=== PATIENT | female | born 1955 | race Caucasian/White ===

== ENCOUNTER 2017-10-10 10:57 | Inpatient (IN) | payer MEDICARE ==
[~2017-10-10] VITALS: Ht 162.6 cm; Wt 145.0 kg
[2017-10-10 11:02] VITALS: BP 132/86; PULSE 54; RESP 16; TEMP 98.3; O2SAT 99
--- NOTE | 2017-10-10 13:14 | PD ---
HPI Chief Complaint: Altered Mental Status Time Seen by Provider: 12:56 Travel History International Travel<30 days: No Contact w/Intl Traveler<30days: No Traveled to known affect area: No History of Present Illness HPI 62-year-old female presents to the emergency department for evaluation of episode of altered mental status that occurred around 10 AM this morning. Patient is a poor historian. She reports some sort of brain surgery that happened in June while she was in [place]. She then moved here in July. She states that she had the brain surgery after an episode of slurred speech and confusion. She does not know what kind of surgery it was. She states she has been doing fine until this morning when she had stuttering, shakiness of the extremities as well as confusion. She states this lasted for approximately 30 minutes and is now at her baseline. Patient denies any pain. No headache. No fevers or chills. No chest pain or shortness of breath. No abdominal pain. Nausea, vomiting, diarrhea. She does have some erythema and warmth of the left lower extremity which she states is chronic for her. She is unsure of her chronic medical problems or what medications that she is on. Moderate severity. No exacerbating or alleviating factors. PFSH Social History Alcohol Use: No Tobacco Use: No Substance Use: No Allergies-Medications (Allergen,Severity, Reaction): Coded Allergies: lidocaine (Verified Allergy, Unknown, 10/10/17) Review of Systems Except as stated in HPI: all other systems reviewed are Neg Physical Exam Narrative GENERAL: Well-nourished, well-developed obese female patient, afebrile SKIN: Focused skin assessment warm/dry. Patient has erythema and warmth noted to left lower extremity. HEAD: Normocephalic. Atraumatic. EYES: No scleral icterus. No injection or drainage. NECK: Supple, trachea midline. No JVD or lymphadenopathy. CARDIOVASCULAR: Regular rate and rhythm without murmurs, gallops, or rubs. Bilateral radial and pedal pulses 2+. RESPIRATORY: Breath sounds equal bilaterally. No accessory muscle use. Lungs sounds are clear to auscultation. GASTROINTESTINAL: Abdomen soft, non-tender, nondistended. MUSCULOSKELETAL: No cyanosis, or edema. Patient have bilateral 2+ lower extremity edema. BACK: Nontender without obvious deformity. No CVA tenderness. NEUROLOGICAL: Awake and alert. Cranial nerves II through XII intact. Motor and sensory grossly within normal limits. Five out of 5 muscle strength in all muscle groups. Normal speech. Data Data Last Documented VS Vital Signs Date Time Temp Pulse Resp B/P (MAP) Pulse Ox O2 Delivery O2 Flow Rate FiO2 10/10/17 13:40 Room Air 10/10/17 13:40 97 10/10/17 11:02 98.3 54 16 132/86 (101) Orders Orders Blood Glucose (10/10/17 12:39) Oximetry (10/10/17 12:39) Iv Access Insert/Monitor (10/10/17 12:39) Ecg Monitoring (10/10/17 12:39) Oxygen Administration (10/10/17 12:39) Complete Blood Count With Diff (10/10/17 12:39) Basic Metabolic Panel (Bmp) (10/10/17 12:39) Electrocardiogram (10/10/17 13:09) Prothrombin Time / Inr (Pt) (10/10/17 13:09) Act Partial Throm Time (Ptt) (10/10/17 13:09) Urinalysis - C+S If Indicated (10/10/17 13:09) Ct Brain W/O Iv Contrast(Rout) (10/10/17 13:09) Dexamethasone Inj (Decadron Inj) (10/10/17 14:30) Mri Brain W&W/O Contrast (10/10/17 ) Urine Culture (10/10/17 14:00) Ceftriaxone Inj (Rocephin Inj) (10/10/17 14:45) Consult Neurosurgery (10/10/17 ) Admit To Inpatient (10/10/17 ) Inpatient Certification (10/10/17 ) Activity Bed Rest (10/10/17 14:47) Vital Signs (Adult) DAVID.Q4H (10/10/17 14:47) Neuro Checks . ORDERED (10/10/17 14:47) Speech Therapy Consult-Eval/Tx (10/10/17 14:49) (Hub Use Only)Inp Phy Cons/Ref (10/10/17 ) Admit Order (Ed Use Only) (10/10/17 15:38) Labs Laboratory Tests Test 10/10/17 13:15 10/10/17 14:00 10/10/17 14:52 Blood Urea Nitrogen 30 MG/DL Creatinine 1.00 MG/DL Random Glucose 102 MG/DL Calcium Level 8.6 MG/DL Sodium Level 140 MEQ/L Potassium Level 3.1 MEQ/L Chloride Level 106 MEQ/L Carbon Dioxide Level 25.5 MEQ/L Anion Gap 9 MEQ/L Estimat Glomerular Filtration Rate 56 ML/MIN Urine Color YELLOW Urine Turbidity CLOUDY Urine pH 6.0 Urine Specific [place] 1.023 Urine Protein 100 mg/dL Urine Glucose (UA) NEG mg/dL Urine Ketones NEG mg/dL Urine Occult Blood MOD Urine Nitrite POS Urine Bilirubin NEG Urine Urobilinogen 2.0 MG/DL Urine Leukocyte Esterase LARGE Urine RBC 14 /hpf Urine WBC /hpf Urine WBC Clumps MOD Urine Squamous Epithelial Cells 74 /hpf Urine Bacteria MANY /hpf Urine Hyaline Casts 12 /lpf Urine Mucus MOD /lpf Microscopic Urinalysis Comment CATH-CULTURE IND White Blood Count 10.2 TH/MM3 Red Blood Count 3.93 MIL/MM3 Hemoglobin 13.0 GM/DL Hematocrit 38.6 % Mean Corpuscular Volume 98.2 FL Mean Corpuscular Hemoglobin 33.2 PG Mean Corpuscular Hemoglobin Concent 33.8 % Red Cell Distribution Width 14.8 % Platelet Count 110 TH/MM3 Mean Platelet Volume 9.1 FL Neutrophils (%) (Auto) 71.3 % Lymphocytes (%) (Auto) 19.4 % Monocytes (%) (Auto) 8.5 % Eosinophils (%) (Auto) 0.5 % Basophils (%) (Auto) 0.3 % Neutrophils # (Auto) 7.2 TH/MM3 Lymphocytes # (Auto) 2.0 TH/MM3 Monocytes # (Auto) 0.9 TH/MM3 Eosinophils # (Auto) 0.1 TH/MM3 Basophils # (Auto) 0.0 TH/MM3 CBC Comment DIFF FINAL Differential Comment Prothrombin Time 10.1 SEC Prothromb Time International Ratio 1.0 RATIO Activated Partial Thromboplast Time 21.[address] [facility] Medical Decision Making Medical Screen Exam Complete: Yes Emergency Medical Condition: Yes Medical Record Reviewed: Yes Differential Diagnosis TIA versus CVA versus intracranial hemorrhage versus electrolyte abnormality versus UTI versus cellulitis Narrative Course 62-year-old female presents to the emergency department for evaluation of episode of stuttering speech, confusion, feeling shaky that started at around 10 AM this morning resolved after 30 minutes. She is now at her baseline. She does report history of brain surgery, but does not know what was done or what for. EKG, CBC, BMP, PTT, PT/INR, UA, CT of the brain are ordered and pending. Patient is initially seen in the ambulance hallway. She will be moved to medical bed when one becomes available. Vicki Lamb Oct 10, 2017 13:14
--- NOTE | 2017-10-10 14:05 | RADRPT ---
EXAM DATE/TIME: 10/10/2017 13:24 [place] COMPARISON: No previous studies available for comparison. INDICATIONS : Trouble with speech,cofusions RADIATION DOSE: 56.35 CTDIvol (mGy) MEDICAL HISTORY : Cerebrovascular disease. SURGICAL HISTORY : Craniotomy. ENCOUNTER: Initial ACUITY: 1 day PAIN SCALE: 0/10 LOCATION: cranial TECHNIQUE: Multiple contiguous axial images were obtained of the head. Using automated exposure control and adj ustment of the mA and/or kV according to patient size, radiation dose was kept as low as reasonably a chievable to obtain optimal diagnostic quality images. DICOM format image data is available electro nically for review and comparison. FINDINGS: There is a large heterogeneous low-density process in the left frontal region with moderate vasogenic edema and mass effect. There is some compression and slight displacement of the ipsilateral frontal horn and regional effacement of cortical sulci. The contralateral right hemisphere is benign and unremarkable. Patchy baseline periventricular white matter hypodensity which is likely microvascular ischemia. The posterior fossa and brainstem structur es are grossly unremarkable. There is no evidence of macroscopic hemorrhage. The patient has undergone previous left frontal craniotomy. Extracranial structures are otherwise wilfredo ssly intact and benign. CONCLUSION: Heterogeneous low-density process in the left frontal brain with moderate mass effect. Neoplastic and infectious processes would be the primary considerations with the latter felt less likely. Correlati on recommended. Further evaluation with contrasted MRI is suggested as clinically appropriate Alexander Jaquez MD on October 10, 2017 at 13:58 Board Certified Radiologist. This report was verified electronically.
[2017-10-10 14:07] LABS: BICARBONATE 25.5 MEQ/L (21.0-32.0); CALCIUM 8.6 MG/DL (8.5-10.1)
--- NOTE | 2017-10-10 14:23 | PD ---
Physical Exam Narrative GENERAL: Well-nourished, well-developed patient. SKIN: Warm and dry. HEAD: Normocephalic and atraumatic. EYES: No injection or drainage. ENT: No nasal drainage noted. NECK: Supple, trachea midline. CARDIOVASCULAR: Regular rate and rhythm RESPIRATORY: no increased effort. No accessory muscle use. NEUROLOGICAL: Awake and alert. Motor and sensory grossly within normal limits. Normal speech. Data Data Last Documented VS Vital Signs Date Time Temp Pulse Resp B/P (MAP) Pulse Ox O2 Delivery O2 Flow Rate FiO2 10/10/17 11:02 98.3 54 16 132/86 (101) 99 Orders Orders Blood Glucose (10/10/17 12:39) Oximetry (10/10/17 12:39) Iv Access Insert/Monitor (10/10/17 12:39) Ecg Monitoring (10/10/17 12:39) Oxygen Administration (10/10/17 12:39) Complete Blood Count With Diff (10/10/17 12:39) Basic Metabolic Panel (Bmp) (10/10/17 12:39) Electrocardiogram (10/10/17 13:09) Prothrombin Time / Inr (Pt) (10/10/17 13:09) Act Partial Throm Time (Ptt) (10/10/17 13:09) Urinalysis - C+S If Indicated (10/10/17 13:09) Ct Brain W/O Iv Contrast(Rout) (10/10/17 13:09) Dexamethasone Inj (Decadron Inj) (10/10/17 14:30) Mri Brain W&W/O Contrast (10/10/17 ) Urine Culture (10/10/17 14:00) Ceftriaxone Inj (Rocephin Inj) (10/10/17 14:45) Consult Neurosurgery (10/10/17 ) Admit To Inpatient (10/10/17 ) Inpatient Certification (10/10/17 ) Diet Npo (10/10/17 Dinner) Activity Bed Rest (10/10/17 14:47) Vital Signs (Adult) DAVID.Q4H (10/10/17 14:47) Neuro Checks . ORDERED (10/10/17 14:47) Speech Therapy Consult-Eval/Tx (10/10/17 14:49) (Hub Use Only)Inp Phy Cons/Ref (10/10/17 ) Admit Order (Ed Use Only) (10/10/17 15:38) Labs Laboratory Tests Test 10/10/17 13:15 10/10/17 14:00 10/10/17 14:52 Blood Urea Nitrogen 30 MG/DL Creatinine 1.00 MG/DL Random Glucose 102 MG/DL Calcium Level 8.6 MG/DL Sodium Level 140 MEQ/L Potassium Level 3.1 MEQ/L Chloride Level 106 MEQ/L Carbon Dioxide Level 25.5 MEQ/L Anion Gap 9 MEQ/L Estimat Glomerular Filtration Rate 56 ML/MIN Urine Color YELLOW Urine Turbidity CLOUDY Urine pH 6.0 Urine Specific [place] 1.023 Urine Protein 100 mg/dL Urine Glucose (UA) NEG mg/dL Urine Ketones NEG mg/dL Urine Occult Blood MOD Urine Nitrite POS Urine Bilirubin NEG Urine Urobilinogen 2.0 MG/DL Urine Leukocyte Esterase LARGE Urine RBC 14 /hpf Urine WBC /hpf Urine WBC Clumps MOD Urine Squamous Epithelial Cells 74 /hpf Urine Bacteria MANY /hpf Urine Hyaline Casts 12 /lpf Urine Mucus MOD /lpf Microscopic Urinalysis Comment CATH-CULTURE IND White Blood Count 10.2 TH/MM3 Red Blood Count 3.93 MIL/MM3 Hemoglobin 13.0 GM/DL Hematocrit 38.6 % Mean Corpuscular Volume 98.2 FL Mean Corpuscular Hemoglobin 33.2 PG Mean Corpuscular Hemoglobin Concent 33.8 % Red Cell Distribution Width 14.8 % Platelet Count 110 TH/MM3 Mean Platelet Volume 9.1 FL Neutrophils (%) (Auto) 71.3 % Lymphocytes (%) (Auto) 19.4 % Monocytes (%) (Auto) 8.5 % Eosinophils (%) (Auto) 0.5 % Basophils (%) (Auto) 0.3 % Neutrophils # (Auto) 7.2 TH/MM3 Lymphocytes # (Auto) 2.0 TH/MM3 Monocytes # (Auto) 0.9 TH/MM3 Eosinophils # (Auto) 0.1 TH/MM3 Basophils # (Auto) 0.0 TH/MM3 CBC Comment DIFF FINAL Differential Comment Prothrombin Time 10.1 SEC Prothromb Time International Ratio 1.0 RATIO Activated Partial Thromboplast Time 21.0 SEC [facility] Supervised Visit with RAINA: No Interpretation(s) Last [address] 10/10/17 [id number] Signed Impressions: Service Date/Time: Tuesday, October 10, 2017 13:24 - CONCLUSION: Heterogeneous low-density process in the left frontal brain with moderate mass effect. Neoplastic and infectious processes would be the primary considerations with the latter felt less likely. Correlation recommended. Further evaluation with contrasted MRI is suggested as clinically appropriate Alexander Jaquez MD CBC & BMP Diagram 10/10/17 13:15 Calcium Level 8.6 Narrative Course Patient initially seen and ambulance hallway. Resume care with workup pending. CT shows low-density process left frontal brain with moderate mass effect. 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 She did not get chemotherapy or radiation afterwards. She is currently on low-dose steroids. She had an MRI at [facility] on September [address] Muller her primary doctor about a possible second spot but did not get official results yet. Today she had an episode early this morning where she just started muttering in terms of speech. Now she is back to baseline other than the family thinks she's a little more agreeable than usual and they're noticing minor changes. Patient will need to be admitted to the hospital for further care. Urinalysis shows signs of infection. Given Rocephin Physician Communication Physician Communication dr ortega agrees to decadron and can admit to medicine dr white agrees to admit Diagnosis Primary Impression: Altered mental status Qualified Codes: R41.82 - Altered mental status, unspecified Additional Impressions: Left frontal lobe lesion UTI (urinary tract infection) Qualified Codes: N39.0 - Urinary tract infection, site not specified Hypokalemia Admitting Information Admitting Physician Requests: Admit Kizzy Gregorio MD Oct 10, 2017 14:23
[2017-10-10 14:25] LABS: BACTERIA, URINE MANY /hpf; BILIRUBIN, URINE NEG (NEG); BLOOD, URINE MOD (NEG); GLUCOSE,URINE NEG (NEG); HYALINE CAST, URINE 12 /lpf (RARE); KETONE, URINE NEG (NEG); MUCUS URINE MOD /lpf (OCC); NITRITE,URINE POS (NEG); SQUAMOUS EPITHELIAL CELL URINE 74 /hpf (0-5); URINE COLOR YELLOW (YELLW/STRAW); URINE LEUKOCYTE ESTERASE LARGE (NEG); WHITE BLOOD CELL CLUMPS MOD
[2017-10-10] MEDS ORDERED: DEXAMETHASONE SOD PHOS 4 MG/ML VIAL IV PUSH ONE (14:30)
[2017-10-10] MEDS ORDERED: cefTRIAXone INJ 1,000 MG in SODIUM CHLORIDE 0.9% INJ 100 ML IV ONE (14:45)
[2017-10-10 15:21] LABS: AUTOMATED NEUTROPHIL # 7.2 TH/MM3 (1.8-7.7); BASOPHIL % 0.3 % (0.0-2.0); EOSINOPHIL # 0.1 TH/MM3 (0-0.4); EOSINOPHIL % 0.5 % (0.0-4.0); HEMATOCRIT 38.6 % (35.0-46.0); LYMPH % 19.4 % (9.0-44.0); MEAN CELL VOLUME 98.2 FL (80.0-100.0); MEAN CORPUSCULAR HEMOGLOBIN 33.2 PG (27.0-34.0); MEAN CORPUSCULAR HGB CONC 33.8 % (32.0-36.0); MEAN PLATELET VOLUME 9.1 FL (7.0-11.0); MONO % 8.5 % (0.0-8.0); MONOCYTE # 0.9 TH/MM3 (0-0.9); NEUT % 71.3 % (16.0-70.0); PLATELET COUNT 110 TH/MM3 (150-450); RED BLOOD COUNT 3.93 MIL/MM3 (4.00-5.30); RED CELL DISTRIBUTION WIDTH 14.8 % (11.6-17.2); WHITE BLOOD COUNT 10.2 TH/MM3 (4.0-11.0)
[2017-10-10 15:38] LABS: PROTHROMBIN TIME - PATIENT 10.1 SEC (9.8-11.6)
[2017-10-10] MEDS ORDERED: POTASSIUM BICARBONATE 25 MEQ EFFERVESCENT TAB PO ONE (18:00)
[2017-10-10] MEDS ORDERED: FAMOTIDINE 20 MG/2 ML VIAL IV PUSH SCH (18:00)
[2017-10-10 18:18] VITALS: BP 124/70
--- NOTE | 2017-10-10 18:52 | HHI.HP ---
HPI Service [facility] Primary Care Physician Unknown Admission Diagnosis altered mental status, frontal lesion, uti Diagnoses: Chief Complaint: Change in mental status Travel History International Travel<30 Days: No Contact w/Intl Traveler <30 Da: No Traveled to Known Affected Are: No History of Present Illness Patient is a 62-year-old female right handed with history of hypertension, history of atrial fibrillation, hypothyroidism, history of thrombocytopenia, history of impulse control issues, history of chronic pain with this a.m. while at the kitchen table was noted by her to be confused. She was noted to be staring blankly into the space and babbling/stuttering. This lasted for half a minute. also reported slight drooping in the mouth and right side I am mild weakness. Patient was confused but her family's states she was still able to go to the bathroom but with directions. There was no syncopal episode. This lasted for a few seconds but required 3 separate times. She had difficulty expressing words out and felt frustrated. EMS was called and was promptly brought in here for further evaluation. Patient herself is amnestic of event. Denies any fever or chest pain shortness of breath nausea vomiting or headaches. Patient was diagnosed with gliosarcoma in 06/14/17 She was set up to see an oncologist this coming Monday for plan for treatment.-family thinks with Dr. Vazquez but not sure Patient baseline uses a front-wheeled walker/Rollator for ambulation for safety. Since 2012 Review of Systems Constitutional: DENIES: Fever, Weight loss, Chills, Change in appetite Eyes: DENIES: Blurred vision, Double Vision Ears, nose, mouth, throat: DENIES: Tinnitus, Ear Pain, Epistaxis, Odynophagia Respiratory: DENIES: Cough, Hemoptysis, Sputum production, Shortness of breath Cardiovascular: DENIES: Chest pain, Palpitations, Dyspnea on Exertion, Lower Extremity Edema, Orthopnea Gastrointestinal: DENIES: Black stools, Bloody stools, Difficulty Swallowing, Anorexia Genitourinary: DENIES: Urgency, Hematuria, Vaginal discharge Musculoskeletal: DENIES: Joint pain, Stiffness Integumentary: DENIES: Pruritus Hematologic/lymphatic: DENIES: Bruising Immunologic/allergic: DENIES: Urticaria Neurologic: DENIES: Headache, Speech Problems, Tremor Psychiatric: DENIES: Suicidal Ideation, Homicidal Ideation Past Family Social History Past Medical History Hypothyroidism Depression Impulse control disorder Glial sarcoma Chronic pain Atrial fibrillation Hypertension Past Surgical History 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/14/17 at [facility] Cholecystectomy 2017 Right knee surgery for torn meniscus History of IND left lower extremity cysts with sounds like complicating osteomyelitis in 2011 Dental surgery Reported Medications Gabapentin 400 mg bedtime oxycodone 5/325 bedtime Metoprolol 50 mg twice daily daily Amiodarone 200 mg daily Lisinopril 20 mg daily Synthroid 300 g daily Sertraline 200 mg daily Trazodone 100 mg at bedtime when necessary for sleep Lorazepam soft 0.5 mg twice a day when necessary Omeprazole 40 mg daily Allergies: Coded Allergies: lidocaine (Verified Allergy, Unknown, 10/10/17) Physical Exam Vital Signs Vital Signs Date Time Temp Pulse Resp B/P (MAP) Pulse Ox O2 Delivery O2 Flow Rate FiO2 10/10/17 18:18 49 15 124/70 (88) 97 10/10/17 13:40 Room Air 10/10/17 13:40 97 Room Air 10/10/17 11:02 98.3 54 16 132/86 (101) 99 Physical Exam GENERAL: Awake alert oriented 3 speech clear and coherent in no apparent distress. Obese HEAD: Atraumatic. Normocephalic. No temporal or scalp tenderness. EYES: Pupils equal round and reactive. Extraocular motions intact. No scleral icterus. No injection or drainage. ENT: Nose without bleeding, purulent drainage or septal hematoma. Throat without erythema, tonsillar hypertrophy or exudate. Uvula midline. Airway patent. NECK: Trachea midline. No JVD or lymphadenopathy. Supple, nontender, no meningeal signs. CARDIOVASCULAR: Regular rate and rhythm without murmurs, gallops, or rubs. Heart rate 62/m RESPIRATORY: Clear to auscultation. Breath sounds equal bilaterally. No wheezes , rales, or rhonchi. GASTROINTESTINAL: Abdomen soft, non-tender, nondistended. No hepato-splenomegaly , or palpable masses. No guarding. MUSCULOSKELETAL: Erythema of both lower extremity per patient chronic, some varicosities NEUROLOGICAL: Awake and alert. Cranial nerves II through XII intact. Motor and sensory grossly within normal limits. Five out of 5 muscle strength in all muscle groups. Normal speech. Laboratory Laboratory Tests Test 10/10/17 13:15 10/10/17 14:00 10/10/17 14:52 Blood Urea Nitrogen 30 Creatinine 1.00 Random Glucose 102 Calcium Level 8.6 Sodium Level 140 Potassium Level 3.1 Chloride Level 106 Carbon Dioxide Level 25.5 Anion Gap 9 Estimat Glomerular Filtration Rate 56 Urine Color YELLOW Urine Turbidity CLOUDY Urine pH 6.0 Urine Specific [place] 1.023 Urine Protein 100 Urine Glucose (UA) NEG Urine Ketones NEG Urine Occult Blood MOD Urine Nitrite POS Urine Bilirubin NEG Urine Urobilinogen 2.0 Urine Leukocyte Esterase LARGE Urine RBC 14 Urine WBC Urine WBC Clumps MOD Urine Squamous Epithelial Cells 74 Urine Bacteria MANY Urine Hyaline Casts 12 Urine Mucus MOD Microscopic Urinalysis Comment CATH-CULTURE IND White Blood Count 10.2 Red Blood Count 3.93 Hemoglobin 13.0 Hematocrit 38.6 Mean Corpuscular Volume 98.2 Mean Corpuscular Hemoglobin 33.2 Mean Corpuscular Hemoglobin Concent 33.8 Red Cell Distribution Width 14.8 Platelet Count 110 Mean Platelet Volume 9.1 Neutrophils (%) (Auto) 71.3 Lymphocytes (%) (Auto) 19.4 Monocytes (%) (Auto) 8.5 Eosinophils (%) (Auto) 0.5 Basophils (%) (Auto) 0.3 Neutrophils # (Auto) 7.2 Lymphocytes # (Auto) 2.0 Monocytes # (Auto) 0.9 Eosinophils # (Auto) 0.1 Basophils # (Auto) 0.0 CBC Comment DIFF FINAL Differential Comment Prothrombin Time 10.1 Prothromb Time International Ratio 1.0 Activated Partial Thromboplast Time 21.0 Date/Time Source Procedure Growth Status 10/10/17 14:00 Urine Catheterized Urine Urine Culture Pending Received Result Diagram: 10/10/17 1452 10/10/17 1315 Imaging Last Impressions Head CT 10/10/17 1309 Signed Impressions: Service Date/Time: Tuesday, October 10, 2017 13:24 - CONCLUSION: Heterogeneous low-density process in the left frontal brain with moderate mass effect. Neoplastic and infectious processes would be the primary considerations with the latter felt less likely. Correlation recommended. Further evaluation with contrasted MRI is suggested as clinically appropriate Alexander MD Grisel Godoy VTE Risk Assessment [place] VTE Risk Assessment: Mod/High Risk (score >= 2) VTE Pharm Contraindication: Intracranial lesions Caprini Risk Assessment Model Point Value = 1 Point Value = 2 Point Value = 3 Point Value = 5 Age 41-60 Minor surgery BMI > 25 kg/m2 Swollen legs Varicose veins or History of unexplained or recurrent spontaneous Oral contraceptives or hormone replacement Sepsis (< 1 month) Serious lung disease, including pneumonia (< 1 month) Abnormal pulmonary function Acute myocardial infarction Congestive heart failure (< 1 month) History of inflammatory bowel disease Medical patient at bed rest Age 61-74 Arthroscopic surgery Major open surgery (> 45 min) Laparoscopic surgery (> 45 min) Malignancy Confined to bed (> 72 hours) Immobilizing plaster cast Central venous access Age >= 75 History of VTE Family history of VTE Factor V Leiden Prothrombin [id number] Lupus anticoagulant Anticardiolipin antibodies Elevated serum homocysteine Heparin-induced thrombocytopenia Other congenital or acquired thrombophilia Stroke (< 1 month) Elective arthroplasty Hip, pelvis, or leg fracture Acute spinal cord injury (< 1 month) Prophylaxis Regimen Total Risk Factor Score Risk Level Prophylaxis Regimen 0-1 Low Early ambulation 2 Moderate Order ONE of the following: *Sequential Compression Device (SCD) *Heparin 5000 units SQ BID 3-4 Higher Order ONE of the following medications: *Heparin 5000 units SQ TID *Enoxaparin/Lovenox 40 mg SQ daily (WT < 150 kg, CrCl > 30 mL/min) *Enoxaparin/Lovenox 30 mg SQ daily (WT < 150 kg, CrCl > 10-29 mL/min) *Enoxaparin/Lovenox 30 mg SQ BID (WT < 150 kg, CrCl > 30 mL/min) AND/OR *Sequential Compression Device (SCD) 5 or more Highest Order ONE of the following medications: *Heparin 5000 units SQ TID (Preferred with Epidurals) *Enoxaparin/Lovenox 40 mg SQ daily (WT < 150 kg, CrCl > 30 mL/min) *Enoxaparin/Lovenox 30 mg SQ daily (WT < 150 kg, CrCl > 10-29 mL/min) *Enoxaparin/Lovenox 30 mg SQ BID (WT < 150 kg, CrCl > 30 mL/min) AND *Sequential Compression Device (SCD) Assessment and Plan Assessment and Plan 62-year-old female right-handed presenting with History of Gliosarcoma S/P surgery december 2016 Change in mental status transient/confusion resolved.with some expressive aphasia Rule out TIA versus seizure episode Cerebral edema surrounding the mass lesion Neurochecks every shift Check an EEG. MRI of the brain ordered Start patient on dexamethasone 4 mg every 6.- Patient was on 2 mg twice a day of Dexamethasone as outpatient Start patient on Keppra 500 mg IV every 12 Neurosurgery consulted speech therapy consult History of hypertension History atrial fibrillation currently in sinus rhythm heart rate in the high 50s to low 60s. Continue on lisinopril 20 mg daily Continue on metoprolol 50 mg twice a day with hold parameters Continue on amiodarone 200 mg daily On further discussion with the patient was not placed on any blood thinners/ antiplatelets due to [employer] lesion and history of thormbocytopenia Patient was set up to see an oncologist for evaluation Consult oncologist History of thrombocytopenia. Per family. Her platelet runs low at one point was in the 50s. Aspirin and Coumadin for anticoagulation was not initiated due to this Platelet count now 110. ff CBC Follow CBC history of hypothyroidism. Continue Synthroid 300 g daily History of depression/impulse control disorder Continue sertraline 200 mg daily. Continue trazodone 100 mg at bedtime History of chronic pain continue on oxycodone 5/325 2 at bedtime when necessary Chronic lower extremity erythema/varicosities on exam. No fever no white count elevation Monitor. Hypokalemia. Given 50 mEq of potassium bicarbonate 1 now Mild acute kidney insufficiency prerenal. Gentle IV fluids with potassium incorporation Complete metabolic panel in a.m. Urinary tract infection- ff c and S started on Ceftriaxone PPI for GI prophylaxis - while on IV steroids Early ambulation TEDs/SCD Discussed Condition With Patient and family. Physician Certification 2 Midnight Certification Type: Admission for Inpatient Services Order for Inpatient Services The services are ordered in accordance with Medicare regulations or non- Medicare payer requirements, as applicable. In the case of services not specified as inpatient-only, they are appropriately provided as inpatient services in accordance with the 2-midnight benchmark. Estimated LOS (days): 3 days is the estimated time the patient will need to remain in the hospital, assuming treatment plan goals are met and no additional complications. Post-Hospital Plan: Not yet determined Sesar Britton MD Oct 10, 2017 18:52
[2017-10-10] MEDS: D5-NS + KCL 20 MEQ INJ 1,000 ML IV SCH ×2 (19:47→23:42)
[2017-10-10] MEDS: ACETAMINOPHEN/HYDROcodone 325 MG/5 MG TAB PO PRN (19:48)
[2017-10-10 20:00] VITALS: BP 132/69; PULSE 48; RESP 18; TEMP 98.1; O2SAT 94
[2017-10-10] MEDS: DEXAMETHASONE SOD PHOS 4 MG/ML VIAL IV PUSH SCH ×2 (20:30→22:45)
[2017-10-10] MEDS ORDERED: GADODIAMIDE PF 287 MG/ML 5 ML VIAL (for RAD MRI) IV PUSH ONE (21:02)
--- NOTE | 2017-10-10 21:11 | RADRPT ---
EXAM DATE/TIME: 10/10/2017 20:26 [facility] COMPARISON: CT BRAIN W/O CONTRAST, October 10, 2017, 13:24. INDICATIONS : Tumor. CONTRAST: 25 cc Omniscan (gadodiamide) IV MEDICAL HISTORY : Gliosarcoma. SURGICAL HISTORY : Cholecystectomy. Craniotomy. Brain tumor resection. Right knee. Left lower leg. ENCOUNTER: Subsequent ACUITY: 1 day PAIN SCORE: 5/10 LOCATION: cranial TECHNIQUE: Multiplanar, multisequence MRI of the brain was performed both prior to and following the administrat ion of paramagnetic contrast. FINDINGS: Patient has had previous left frontal craniotomy and there are surgical changes of the left frontal l obe. A large recurrent mass is seen in the surgical bed measuring approximately 5.4 x 6.2 x 4.9 cm in size. There is heterogeneous enhancement with central necrosis. The mass invades the corpus callosum and crosses the midline slightly. There is leptomeningeal component of tumor that measures up to 11 mm in maximal thickness at and focal areas of extension into the skull. There is approximately 6 mm o f rightward midline shift. No bleed or acute infarct seen. 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 There is a large component of tumor involving the leptomeninges and with scattered f oci of skull invasion.. Alexander Gilbert MD on October 10, 2017 at 21:03 Board Certified Radiologist. This report was verified electronically.
[2017-10-10] MEDS: levETIRAcetam INJ 500 MG in SODIUM CHLORIDE 0.9% INJ 100 ML IV SCH (22:30)
[2017-10-10] MEDS: traZODone HCL 100 MG TAB PO SCH (22:30)
[2017-10-10] MEDS: GABAPENTIN 400 MG CAP PO SCH (22:30)
[2017-10-10] MEDS: METOPROLOL TARTRATE 25 MG TAB PO SCH (22:30)
--- NOTE | 2017-10-10 23:14 | PD.CONS ---
History of Present Illness Service Neurosurgery Consult Requested By Medicine service Reason for Consult Recurrent brain neoplasm Primary Care Physician Unknown Diagnoses: History of Present Illness 62-year-old female gives a history of glial sarcoma resected at [facility] in June 2017. She states that due to apparent metabolic or hematologic problems she did not undergo postoperative radiation or chemotherapy , although indicates that recommendations for radiation were sent to her oncologist locally. She cannot tell me the name of her local oncologist. She states that this morning she had approximately a 32nd episode where she could not understand what would being said to her and could not talk. After that she remained somewhat confused. She does not acknowledge significant residual problems with confusion, but still is having difficulty with expressive speech. She denies any headache blurred vision diplopia. No definite weakness or numbness in the extremities Review of Systems Constitutional: COMPLAINS OF: Fatigue, Weight gain, DENIES: Fever Eyes: DENIES: Blurred vision, Diplopia Ears, nose, mouth, throat: DENIES: Vertigo Cardiovascular: DENIES: Chest pain, Palpitations Gastrointestinal: DENIES: Abdominal pain, Nausea, Vomiting Musculoskeletal: DENIES: Joint pain, Muscle aches Neurologic: COMPLAINS OF: Speech Problems, Poor Balance, DENIES: Abnormal gait , Headache Psychiatric: COMPLAINS OF: Confusion Past Family Social History Allergies: Coded Allergies: lidocaine (Verified Allergy, Unknown, 10/10/17) Past Medical History Cerebral gliosarcoma hypertension Atrial fibrillation Thrombocytopenia Hypothyroidism Past Surgical History Craniotomy June 2017 Cholecystectomy Right knee surgery Reported Medications Gabapentin Metoprolol Synthroid Lisinopril Amiodarone Lorazepam Sertraline Trazodone Thyroid Omeprazole Physical Exam Vital Signs Vital Signs Date Time Temp Pulse Resp B/P (MAP) Pulse Ox O2 Delivery O2 Flow Rate FiO2 10/10/17 20:00 98.1 48 18 132/69 (90) 94 10/10/17 18:18 49 15 124/70 (88) 97 10/10/17 13:40 Room Air 10/10/17 13:40 97 Room Air 10/10/17 11:02 98.3 54 16 132/86 (101) 99 Physical Exam GENERAL: Pleasant moderately obese lady in no apparent distress. SKIN: Significant edema and ecchymosis with some varicosities in the lower extremities. Moderate upper extremity edema HEAD: No scalp lacerations EYES: Sclerae are clear and nonicteric ENT: Cushingoid type features NECK: Neck nontender CARDIOVASCULAR: Regular rate and rhythm without murmurs, gallops, or rubs. RESPIRATORY: Clear to auscultation. Breath sounds equal bilaterally. No wheezes , rales, or rhonchi. GASTROINTESTINAL: Abdomen soft, non-tender, nondistended. No hepato-splenomegaly , or palpable masses. No guarding. MUSCULOSKELETAL: Extremities without clubbing, cyanosis, or edema. No joint tenderness, effusion, or edema noted. NEUROLOGICAL: Awake and alert Moderate expressive speech deficit Moderate difficulty with word finding. Moderate slowing of thought processes Extraocular movements and visual guardado to confrontation intact Facial sensorimotor intact Sensation intact all extremities light touch Strength normal major flexion and extension groups all extremities Mild ataxia Laboratory Laboratory Tests Test 10/10/17 13:15 10/10/17 14:00 10/10/17 14:52 Blood Urea Nitrogen 30 Creatinine 1.00 Random Glucose 102 Calcium Level 8.6 Sodium Level 140 Potassium Level 3.1 Chloride Level 106 Carbon Dioxide Level 25.5 Anion Gap 9 Estimat Glomerular Filtration Rate 56 Urine Color YELLOW Urine Turbidity CLOUDY Urine pH 6.0 Urine Specific [place] 1.023 Urine Protein 100 Urine Glucose (UA) NEG Urine Ketones NEG Urine Occult Blood MOD Urine Nitrite POS Urine Bilirubin NEG Urine Urobilinogen 2.0 Urine Leukocyte Esterase LARGE Urine RBC 14 Urine WBC Urine WBC Clumps MOD Urine Squamous Epithelial Cells 74 Urine Bacteria MANY Urine Hyaline Casts 12 Urine Mucus MOD Microscopic Urinalysis Comment CATH-CULTURE IND White Blood Count 10.2 Red Blood Count 3.93 Hemoglobin 13.0 Hematocrit 38.6 Mean Corpuscular Volume 98.2 Mean Corpuscular Hemoglobin 33.2 Mean Corpuscular Hemoglobin Concent 33.8 Red Cell Distribution Width 14.8 Platelet Count 110 Mean Platelet Volume 9.1 Neutrophils (%) (Auto) 71.3 Lymphocytes (%) (Auto) 19.4 Monocytes (%) (Auto) 8.5 Eosinophils (%) (Auto) 0.5 Basophils (%) (Auto) 0.3 Neutrophils # (Auto) 7.2 Lymphocytes # (Auto) 2.0 Monocytes # (Auto) 0.9 Eosinophils # (Auto) 0.1 Basophils # (Auto) 0.0 CBC Comment DIFF FINAL Differential Comment Prothrombin Time 10.1 Prothromb Time International Ratio 1.0 Activated Partial Thromboplast Time 21.0 Date/Time Source Procedure Growth Status 10/10/17 14:00 Urine Catheterized Urine Urine Culture Pending Received Result Diagram: 10/10/17 1452 10/10/17 1315 Imaging 10/10/2017 CT scan and MRI brain images reviewed by the undersigned. Agree with findings as noted below. Significant recurrent left frontal neoplasm with significant necrosis. Extension across the frontal midline. Head CT 10/10/17 1309 Signed Impressions: Service Date/Time: Tuesday, October 10, 2017 13:24 - CONCLUSION: Heterogeneous low-density process in the left frontal brain with moderate mass effect. Neoplastic and infectious processes would be the primary considerations with the latter felt less likely. Correlation recommended. 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 There is a large component of tumor involving the leptomeninges and with scattered foci of skull invasion.. Alexander Gilbert MD Assessment and Plan Assessment and Plan Impression: 1. Large apparent recurrence left frontal neoplasm with patient getting history of resection of glial sarcoma at [facility] June 2017. 2. Hypertension 3. Atrial fibrillation 4. Hypothyroidism Recommendations: Advised the patient that we will need to get in touch with her local oncologist to gain a better understanding of her treatment plan. She has significant recurrence of the left frontal neoplasm and the role of further surgery seems limited at this point, She apparently has not had postoperative radiation therapy, but given the extent of the recurrent neoplasm, it is unlikely that radiation therapy would have a significant impact on her outcome at this point. I will discuss this further with the family. It is likely that they already have a treatment plan and resources in place. Rafael Bradley MD Oct 10, 2017 23:14
[2017-10-11] VITALS: BP 130/67; PULSE 52; RESP 18; TEMP 98; O2SAT 95
[2017-10-11 04:00] VITALS: BP 137/65; PULSE 56; RESP 18; TEMP 98; O2SAT 95
[2017-10-11] MEDS: DEXAMETHASONE SOD PHOS 4 MG/ML VIAL IV PUSH SCH ×3 (05:55→18:34)
[2017-10-11] MEDS ORDERED: LEVOTHYROXINE SODIUM 100 MCG TAB PO SCH (06:00)
[2017-10-11] MEDS: LEVOTHYROXINE SODIUM 200 MCG TAB PO SCH (06:11)
[2017-10-11 07:45] VITALS: BP 134/62; PULSE 55; RESP 22; TEMP 97.7; O2SAT 97
[2017-10-11] MEDS: levETIRAcetam INJ 500 MG in SODIUM CHLORIDE 0.9% INJ 100 ML IV SCH ×2 (07:59→20:16)
[2017-10-11] MEDS: PANTOPRAZOLE SOD 40 MG DELAYED RELEASE TAB PO SCH (08:01)
[2017-10-11] MEDS: SERTRALINE HCL 100 MG TAB PO SCH (08:01)
[2017-10-11] MEDS: LISINOPRIL 20 MG TAB PO SCH (08:01)
[2017-10-11] MEDS ORDERED: FURO1TAB61 PO (08:15)
[2017-10-11] MEDS: AMIODARONE 200 MG TAB PO SCH (09:00)
[2017-10-11] MEDS ORDERED: NALOXONE HCL 0.4 MG/ML AMP IV PUSH PRN (09:00)
[2017-10-11] MEDS ORDERED: SENNOSIDES 8.6 MG TAB PO PRN (09:00)
[2017-10-11] MEDS ORDERED: MAGNESIUM HYDROXIDE SUSP 30 ML CUP PO PRN (09:00)
[2017-10-11] MEDS: METOPROLOL TARTRATE 25 MG TAB PO SCH ×2 (09:00→20:17)
[2017-10-11] MEDS ORDERED: BISACODYL 10 MG SUPP RECTAL PRN (09:00)
[2017-10-11] MEDS: DOCUSATE SODIUM 50 MG/SENNA 8.6 MG TAB PO SCH ×2 (09:00→20:17)
[2017-10-11] MEDS ORDERED: LACTULOSE SYRUP 20 GM/30 ML CUP PO PRN (09:00)
[2017-10-11] MEDS ORDERED: ACETAMINOPHEN 325 MG TAB PO PRN ×2 (09:00)
[2017-10-11] MEDS ORDERED: ONDANSETRON HCL 4 MG/2 ML VIAL IVP PRN (09:00)
[2017-10-11 09:46] LABS: HEMATOCRIT 41.5 % (35.0-46.0); MEAN CORPUSCULAR HEMOGLOBIN 33.3 PG (27.0-34.0); MEAN CORPUSCULAR HGB CONC 33.6 % (32.0-36.0); PLATELET COUNT 89 TH/MM3 (150-450); RED BLOOD COUNT 4.19 MIL/MM3 (4.00-5.30); RED CELL DISTRIBUTION WIDTH 14.9 % (11.6-17.2); WHITE BLOOD COUNT 9.3 TH/MM3 (4.0-11.0)
[2017-10-11 10:13] LABS: ALBUMIN 3.1 GM/DL (3.4-5.0); AST (GOT) 20 U/L (15-37); BICARBONATE 31.5 MEQ/L (21.0-32.0); BLOOD UREA NITROGEN 23 MG/DL (7-18); CALCIUM 8.8 MG/DL (8.5-10.1); CHLORIDE 103 MEQ/L (98-107); GLOMERULAR FILTRATION RATE 84 ML/MIN (>89); GLUCOSE,RANDOM 134 MG/DL (74-106); SODIUM (NA) 141 MEQ/L (136-145)
[2017-10-11 10:14] LABS: ALT (GPT) 32 U/L (10-53)
[2017-10-11 10:24] LABS: ALKALINE PHOSPHATASE 44 U/L (45-117); TOTAL BILIRUBIN ADULT 0.4 MG/DL (0.2-1.0); TOTAL PROTEIN 6.7 GM/DL (6.4-8.2)
[2017-10-11 11:41] VITALS: BP 137/61; PULSE 63; RESP 22; TEMP 97.4; O2SAT 100
--- NOTE | 2017-10-11 12:43 | HHI.PR ---
Subjective Remarks Follow-up encephalopathy. She is alert and oriented 4. No complaints. Seen with family. Discussed with RN Objective Vitals Vital Signs Date Time Temp Pulse Resp B/P (MAP) Pulse Ox O2 Delivery O2 Flow Rate FiO2 10/11/17 11:41 97.4 63 22 137/61 (86) 100 10/11/17 07:45 97.7 55 22 134/62 (86) 97 10/11/17 04:00 98.0 56 18 137/65 (89) 95 10/11/17 00:00 98.0 52 18 130/67 (88) 95 10/10/17 20:00 98.1 48 18 132/69 (90) 94 10/10/17 18:18 49 15 124/70 (88) 97 10/10/17 13:40 Room Air 10/10/17 13:40 97 Room Air I/O 10/10/17 10/10/17 10/10/17 10/11/17 10/11/17 10/11/17 07:00 15:00 23:00 07:00 15:00 23:00 Intake Total 480 ml Balance 480 ml Intake Oral 480 ml # Voids 3 2 Result Diagram: 10/11/17 0840 10/11/17 0840 Imaging Last Impressions Head CT 10/10/17 1309 Signed Impressions: Service Date/Time: Tuesday, October 10, 2017 13:24 - CONCLUSION: Heterogeneous low-density process in the left frontal brain with moderate mass effect. Neoplastic and infectious processes would be the primary considerations with the latter felt less likely. Correlation recommended. 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 There is a large component of tumor involving the leptomeninges and with scattered foci of skull invasion.. Alexander Gilbert MD Objective Remarks GENERAL: Well-developed, obese in no distress HEAD: Atraumatic. Normocephalic. No temporal or scalp tenderness. CARDIOVASCULAR: Regular rate and rhythm without murmurs, gallops, or rubs. RESPIRATORY: Clear to auscultation. Breath sounds equal bilaterally. No wheezes , rales, or rhonchi. GASTROINTESTINAL: Abdomen soft, non-tender, nondistended. No guarding. MUSCULOSKELETAL: Erythema of both lower extremity per patient chronic, some varicosities NEUROLOGICAL: Awake and alert. Cranial nerves II through XII intact. Motor and sensory grossly within normal limits. Five out of 5 muscle strength in all muscle groups. Normal speech. 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 MRI of the brain without acute CVA. Check echocardiogram and carotid sonogram. Monitor on telemetry. Risk factor modifications check A1c and lipid profile Increase dexamethasone 4 mg every 6.- Patient was on 2 mg twice a day of Dexamethasone as outpatient Continue Keppra 500 mg IV every 12 Neurosurgery consulted speech therapy consult. PT also History of hypertension History atrial fibrillation currently in sinus rhythm heart rate in the high 50s to low 60s. Continue on lisinopril 20 mg daily Continue on metoprolol 50 mg twice a day with hold parameters Continue on amiodarone 200 mg daily On further discussion with the patient was not placed on any blood thinners/ antiplatelets due to FIELD REPRESENTATIVE/HEALTH EDUCATION lesion and history of thrombocytopenia Patient was set up to see an oncologist for evaluation Consult oncologist History of thrombocytopenia. Per family. Her platelet runs low at one point was in the 50s. Aspirin and Coumadin for anticoagulation was not initiated due to this Platelet count now 110. ff CBC Follow CBC history of hypothyroidism. TSH low. Check free T3 and free T4. Decrease Synthroid to 275 g daily History of depression/impulse control disorder Continue sertraline 200 mg daily. Continue trazodone 100 mg at bedtime History of chronic pain continue on oxycodone 5/325 2 at bedtime when necessary Chronic lower extremity edema with erythema/varicosities on exam. No fever no white count elevation Monitor. Restart Lasix Hypokalemia. Improved with replacement Mild acute kidney insufficiency prerenal. Improving discontinue IV fluids with potassium incorporation Basic metabolic panel in a.m. Urinary tract infection- ff c and S with gram-negative ava Continue Ceftriaxone PPI for GI prophylaxis - while on IV steroids Discharge Planning Possible discharge in the morning Problem Qualifiers (1) UTI (urinary tract infection): Qualified Codes: N39.0 - Urinary tract infection, site not specified Alfa Pierce MD Oct 11, 2017 12:43
--- NOTE | 2017-10-11 12:51 | HHI.DCPOC ---
Discharge Care Plan Your Health Problems Are: Difficulty with ADL Exercise Tolerance Goals to Promote Your Health * To prevent worsening of your condition and complications * To maintain your health at the optimal level Directions to Meet Your Goals Take your medications as prescribed Follow your dietary instruction Follow activity as directed Keep your appointments as scheduled Take your immunizations and boosters as scheduled If your symptoms worsen call your PCP, if no PCP go to Urgent Care Center or Emergency Room Smoking is Dangerous to Your Health. Avoid second hand smoke Call the 24-hour hour crisis hotline for domestic abuse at Alfa Pierce MD Oct 11, 2017 12:51
--- NOTE | 2017-10-11 12:52 | HHI.FF ---
Face to Face Verification Diagnosis: (1) Altered mental status (2) Left frontal lobe lesion (3) UTI (urinary tract infection) Physical Therapy Order: Evaluate and Treat, Improve ambulation, Strength and gait training Occupational Therapy Order: Evaluate and Treat, Improve ADL, Gross motor coordination, Fine motor coordination Home Health Nursing Order: Medical education Signs/symptoms of disease process Medication education-adverse effect Nursing assessment with vital signs I have seen patient Bee Hatch on 10/11/17. My clinical findings support the need for the requested home health care services because: Deconditioned w/ increased weakness I certify that my clinical findings support that this patient is homebound because: Unsafe to leave home unassisted Alfa Pierce MD Oct 11, 2017 12:52
[2017-10-11] MEDS ORDERED: OMEP20TA93 PO (13:02)
[2017-10-11] MEDS ORDERED: OMEP40CA2 PO (13:06)
[2017-10-11] MEDS ORDERED: OXYC1TAB63 PO (13:29)
[2017-10-11] MEDS ORDERED: QUET5TAB PO (13:29)
[2017-10-11] MEDS ORDERED: LORA0.5T PO (13:29)
[2017-10-11] MEDS ORDERED: ALBUAER3 INH (13:29)
[2017-10-11] MEDS ORDERED: CETI10TA71 PO (13:29)
[2017-10-11] MEDS: POTASSIUM CHLORIDE 20 MEQ CONTROLLED RELEASE TAB PO SCH (13:43)
[2017-10-11 14:31] LABS: FREE T3 1.82 PG/ML (2.18-3.98); FREE T4 2.58 NG/DL (0.76-1.46)
[2017-10-11] MEDS ORDERED: POTA20TA5 PO (15:21)
[2017-10-11] MEDS ORDERED: cefTRIAXone INJ 1,000 MG in SODIUM CHLORIDE 0.9% INJ 100 ML IV SCH (16:00)
[2017-10-11 16:27] VITALS: BP 122/58; PULSE 54; RESP 20; TEMP 98.4; O2SAT 97
[2017-10-11 18:03] LABS: CHOLESTEROL 246 MG/DL (120-200)
[2017-10-11 18:05] LABS: CHOLESTEROL/ HDL RATIO 4.88 RATIO; HDL CHOLESTEROL 50.4 MG/DL (40.0-60.0); LDL CHOLESTEROL 160 MG/DL (0-99); TRIGLYCERIDES 177 MG/DL (42-150)
--- NOTE | 2017-10-11 18:10 | HHI.NSPN ---
History Chief Complaint: speech difficulty Interval History 62-year-old female with history of left frontal neoplasm resected [facility] June 2017. 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 Admitted to the hospital 10/10/2017 after approximately 30 seconds episode of both receptive and expressive speech deficit. Patient does not clearly recall the event. Discussion with the family today in the room indicates that there was no definite loss of consciousness. No definite focal seizure activity. The patient believes that she is back to her baseline after the event. No complaint of headache. Family indicates that the patient has had some persistent speech difficulty and memory loss as well as gait deficit following the surgery, but mostly all improved compared to her preoperative state. They have an appointment to see Dr. Vazquez for oncology evaluation tomorrow Exam Results Vital Signs Date Time Temp Pulse Resp B/P (MAP) Pulse Ox O2 Delivery O2 Flow Rate FiO2 10/11/17 16:27 98.4 54 20 122/58 (79) 97 10/10/17 13:40 Room Air Physical Examination Awake and alert Mild dysarthria and expressive speech deficit Extraocular movements intact Patient motor movements symmetric Sensation intact to light touch all extremities Strength is within normal limits all major flexion and extension groups upper and lower extremities Lab, Micro, Other Results Laboratory Tests Test 10/11/17 08:40 Platelet Count 89 TH/MM3 Blood Urea Nitrogen 23 MG/DL Random Glucose 134 MG/DL Albumin 3.1 GM/DL Alkaline Phosphatase 44 U/L Estimat Glomerular Filtration Rate 84 ML/MIN Triglycerides Level 177 MG/DL Cholesterol Level 246 MG/DL LDL Cholesterol 160 MG/DL Free Thyroxine 2.58 NG/DL Free Triiodothyronine (T3) pg/dL 1.82 PG/ML Thyroid Stimulating Hormone 3rd Gen 0.029 uIU/ML Medical Decision Making Impression and Plan Impression: Large recurrent left frontal neoplasm. Patient gives history of glial cell neoplasm resected June 2017. No definite seizure. Plan: Findings were discussed with the patient and her family at length in the room today. She appears stable for discharge home to proceed with planned oncology evaluation on 10/12/[address] Vazquez. I discussed the patient briefly with medical oncology today. It is unlikely that further surgical intervention would significantly alter the course of the disease. We will continue to follow her along with oncology on an outpatient basis and review her records from [facility] to better determine her most recent plan of treatment. Rafael Bradley MD Oct 11, 2017 18:09
[2017-10-11 20:00] VITALS: BP 127/60; PULSE 59; RESP 18; TEMP 98.2; O2SAT 94
[2017-10-11] MEDS: traZODone HCL 100 MG TAB PO SCH (20:17)
[2017-10-11] MEDS: GABAPENTIN 400 MG CAP PO SCH (20:17)
[2017-10-11] MEDS: ACETAMINOPHEN/HYDROcodone 325 MG/5 MG TAB PO PRN (20:29)
[2017-10-11 21:58] LABS: HEMOGLOBIN A1C 5.5 % (4.3-6.0)
--- NOTE | 2017-10-11 22:09 | EKG ---
Date Performed: 10/10/2017 Time Performed: 14:05:24 PTAGE: 62 years EKG: SINUS BRADYCARDIA POSSIBLE LEFT ATRIAL ENLARGEMENT LOW QRS VOLTAGE IN PRECORDIAL LEADS NONS PECIFIC T-WAVE ABNORMALITY BORDERLINE ECG NO PREVIOUS TRACING DOCTOR: Eneida Daniels Interpretating Date/Time 10/11/2017 22:08:35
--- NOTE | 2017-10-11 23:34 | MG ---
cc: MARIAN SMITH MD Sex: F DATE OF : [address] Britton. MEDICAL HISTORY History of PTSD, brain surgery, glioblastoma, hypertension, atrial fibrillation , hypothyroidism, thrombocytopenia. MEDICATIONS: Cordarone. Lisinopril Zoloft Protonix Lopressor Synthroid. Gabapentin Desyrel [place] Decadron Keppra. DESCRIPTION The background activity is 8-9 Hz alpha located posteriorly superimposed by excess beta activity. There is excess movement and muscle artifact during the recording. There is mild slowing at the left frontal and parietal region with electrode artifact. Hyperventilation was omitted. Photic stimulation did not elicit a driving response. There were no electrographic seizures or epileptiform discharges noted. INTERPRETATION This is an awake EEG. The slowing on the left frontal lobe region maybe related to a structural abnormality. There is excessive muscle and electrode artifacts. There were no electrographic seizures or epileptiform discharges noted. Beta activity is a nonspecific finding that may be related to medication adverse effects like benzos and barbiturates. Clinical correlation is recommended. MD JEROME Madison/MIROSLAVA /8:05 PM /11:14 PM MTDFlash
[2017-10-12] VITALS: BP 129/63; PULSE 57; RESP 18; TEMP 98; O2SAT 94
--- NOTE | 2017-10-12 00:06 | RADRPT ---
EXAM DATE/TIME: 10/11/2017 22:51 [place] COMPARISON: No previous studies available for comparison. INDICATIONS : Cerebrovascular accident. MEDICAL HISTORY : Cerebrovascular accident. PTSD. Blood transfusion. SURGICAL HISTORY : Brain surgery. ENCOUNTER: Initial ACUITY: 1 day PAIN SCORE: 0/10 LOCATION: Bilateral neck PEAK SYSTOLIC VELOCITIES (cm/sec): ICA/CCA RATIO: Right: 0.9 Left: 0.8 ICA: Right: 111 Left: 89 CCA: Right: 123 Left: 116 ECA: Right: 165 Left: 148 VERTEBRAL: Right: 70 antegrade Left: 66 antegrade Elevated flow velocities and ICA/CCA ratios have been found to correlate with increased degrees of vessel stenosis, calculated as percentage of diameter relative to a normal segment of distal ICA/CCA FINDINGS: RIGHT CAROTID: No significant stenosis is visualized. The waveforms are within normal limits. LEFT CAROTID: No significant stenosis is visualized. The waveforms are within normal limits. VERTEBRAL ARTERIES: Antegrade flow is seen in both vertebral arteries. MISCELLANEOUS: None. CONCLUSION: 1. No evidence of hemodynamically significant lesion. Niles Cannon MD on October 12, 2017 at 0:03 Board Certified Radiologist. This report was verified electronically.
[2017-10-12] MEDS: DEXAMETHASONE SOD PHOS 4 MG/ML VIAL IV PUSH SCH ×3 (00:32→10:58)
[2017-10-12 04:00] VITALS: BP 128/60; PULSE 67; RESP 18; TEMP 98.1; O2SAT 95
[2017-10-12 04:33] VITALS: PULSE 49
[2017-10-12] MEDS: LEVOTHYROXINE SODIUM 200 MCG TAB PO SCH (05:56)
[2017-10-12] MEDS: ACETAMINOPHEN/HYDROcodone 325 MG/5 MG TAB PO PRN (05:56)
[2017-10-12] MEDS ORDERED: LEVOTHYROXINE SODIUM 75 MCG TAB PO SCH (06:00)
[2017-10-12 07:46] VITALS: BP 127/65; PULSE 54; RESP 20; TEMP 98.2; O2SAT 96
[2017-10-12] MEDS: levETIRAcetam INJ 500 MG in SODIUM CHLORIDE 0.9% INJ 100 ML IV SCH (08:15)
[2017-10-12] MEDS: DOCUSATE SODIUM 50 MG/SENNA 8.6 MG TAB PO SCH (08:19)
[2017-10-12] MEDS: PANTOPRAZOLE SOD 40 MG DELAYED RELEASE TAB PO SCH (08:20)
[2017-10-12] MEDS: METOPROLOL TARTRATE 25 MG TAB PO SCH (08:21)
[2017-10-12] MEDS: SERTRALINE HCL 100 MG TAB PO SCH (08:21)
[2017-10-12] MEDS: POTASSIUM CHLORIDE 20 MEQ CONTROLLED RELEASE TAB PO SCH (08:22)
[2017-10-12] MEDS: LISINOPRIL 20 MG TAB PO SCH (08:22)
[2017-10-12] MEDS: AMIODARONE 200 MG TAB PO SCH (08:22)
[2017-10-12] MEDS ORDERED: FUROSEMIDE 40 MG TAB PO SCH (09:00)
[2017-10-12 09:14] VITALS: PULSE 51
[2017-10-12 09:19] LABS: BICARBONATE 26.3 MEQ/L (21.0-32.0); CALCIUM 8.2 MG/DL (8.5-10.1); CREATININE 0.69 MG/DL (0.50-1.00)
[2017-10-12 09:21] LABS: AUTOMATED NEUTROPHIL # 10.2 TH/MM3 (1.8-7.7); BASOPHIL % 0.3 % (0.0-2.0); EOSINOPHIL % 0.2 % (0.0-4.0); HEMATOCRIT 35.1 % (35.0-46.0); LYMPH % 11.4 % (9.0-44.0); LYMPHOCYTE # 1.4 TH/MM3 (1.0-4.8); MEAN CELL VOLUME 97.6 FL (80.0-100.0); MEAN CORPUSCULAR HEMOGLOBIN 33.3 PG (27.0-34.0); MEAN CORPUSCULAR HGB CONC 34.2 % (32.0-36.0); MEAN PLATELET VOLUME 9.9 FL (7.0-11.0); MONO % 5.2 % (0.0-8.0); MONOCYTE # 0.6 TH/MM3 (0-0.9); NEUT % 82.9 % (16.0-70.0); PLATELET COUNT 77 TH/MM3 (150-450); RED CELL DISTRIBUTION WIDTH 14.7 % (11.6-17.2); WHITE BLOOD COUNT 12.2 TH/MM3 (4.0-11.0)
[2017-10-12] MEDS ORDERED: AMIO200T PO (10:46)
[2017-10-12] MEDS ORDERED: LEVO200T4 PO (10:47)
[2017-10-12] MEDS ORDERED: METO100T PO (10:49)
[2017-10-12] MEDS ORDERED: METO50TA PO (10:50)
[2017-10-12] MEDS ORDERED: AMLO10TA2 PO (10:51)
[2017-10-12] MEDS ORDERED: LISI-515 PO (10:52)
[2017-10-12] MEDS ORDERED: TRAZ100T10 PO (10:52)
[2017-10-12] MEDS ORDERED: GABA400C5 PO (10:53)
[2017-10-12] MEDS ORDERED: DEXA4TAB PO ×2 (10:54→11:31)
[2017-10-12] MEDS ORDERED: SERT-129 PO (10:56)
[2017-10-12] MEDS ORDERED: CEFUROXIME AXETIL 250 MG TAB PO SCH (11:30)
[2017-10-12] MEDS ORDERED: CEFU1TAB18 PO (11:31)
[2017-10-12] MEDS ORDERED: LEVO.2 PO (11:31)
[2017-10-12] MEDS ORDERED: ATOR20TA15 PO (11:31)
[2017-10-12] MEDS ORDERED: LEVO.075 PO (11:31)
--- NOTE | 2017-10-12 11:35 | HHI.DS ---
Discharge Summary Admission Date Oct 10, 2017 at 15:40 Discharge Date: Oct 12, 2017 Admitting Diagnosis altered mental status, frontal lesion, uti (1) Left frontal lobe lesion ICD Code: G93.9 - Disorder of brain, unspecified Diagnosis: Principal Status: Acute (2) UTI (urinary tract infection) ICD Code: N39.0 - Urinary tract infection, site not specified Diagnosis: Principal Status: Acute Procedures none Brief History - From Admission Patient is a 62-year-old female right handed with history of hypertension, history of atrial fibrillation, hypothyroidism, history of thrombocytopenia, history of impulse control issues, history of chronic pain with this a.m. while at the kitchen table was noted by her to be confused. She was noted to be staring blankly into the space and babbling/stuttering. This lasted for half a minute. also reported slight drooping in the mouth and right side I am mild weakness. Patient was confused but her family's states she was still able to go to the bathroom but with directions. There was no syncopal episode. This lasted for a few seconds but required 3 separate times. She had difficulty expressing words out and felt frustrated. EMS was called and was promptly brought in here for further evaluation. Patient herself is amnestic of event. Denies any fever or chest pain shortness of breath nausea vomiting or headaches. Patient was diagnosed with gliosarcoma in 06/14/17 She was set up to see an oncologist this coming Monday for plan for treatment.-family thinks with Dr. Vazquez but not sure Patient baseline uses a front-wheeled walker/Rollator for ambulation for safety. Since 2011 CBC/BMP: 10/12/17 0718 10/12/17 0718 Significant Findings Laboratory Tests Test 10/10/17 13:15 10/10/17 14:00 10/10/17 14:52 10/11/17 08:40 Blood Urea Nitrogen 30 MG/DL (7-18) 23 MG/DL (7-18) Potassium Level 3.1 MEQ/L (3.5-5.1) Estimat Glomerular Filtration Rate 56 ML/MIN (>89) 84 ML/MIN (>89) Urine Turbidity CLOUDY (CLEAR) Urine Protein 100 mg/dL (NEG-TRACE) Urine Occult Blood MOD (NEG) Urine Nitrite POS (NEG) Urine Leukocyte Esterase LARGE (NEG) Urine RBC 14 /hpf (0-3) Urine WBC Clumps MOD (NONE) Urine Bacteria MANY /hpf (NONE) Urine Mucus MOD /lpf (OCC) Red Blood Count 3.93 MIL/MM3 (4.00-5.30) Platelet Count 110 TH/MM3 (150-450) 89 TH/MM3 (150-450) Neutrophils (%) (Auto) 71.3 % (16.0-70.0) Monocytes (%) (Auto) 8.5 % (0.0-8.0) Activated Partial Thromboplast Time 21.0 SEC (24.3-30.1) Random Glucose 134 MG/DL (74-106) Albumin 3.1 GM/DL (3.4-5.0) Alkaline Phosphatase 44 U/L (45-117) Triglycerides Level 177 MG/DL (42-150) Cholesterol Level 246 MG/DL (120-200) LDL Cholesterol 160 MG/DL (0-99) Free Thyroxine 2.58 NG/DL (0.76-1.46) Free Triiodothyronine (T3) pg/dL 1.82 PG/ML (2.18-3.98) Thyroid Stimulating Hormone 3rd Gen 0.029 uIU/ML (0.358-3.740) Test 10/11/17 14:00 10/12/17 07:18 Urine Benzodiazepines Screen POS (NEG) White Blood Count 12.2 TH/MM3 (4.0-11.0) Red Blood Count 3.60 MIL/MM3 (4.00-5.30) Platelet Count 77 TH/MM3 (150-450) Neutrophils (%) (Auto) 82.9 % (16.0-70.0) Neutrophils # (Auto) 10.2 TH/MM3 (1.8-7.7) Platelet Estimate LOW (NORMAL) Blood Urea Nitrogen 19 MG/DL (7-18) Random Glucose 118 MG/DL (74-106) Calcium Level 8.2 MG/DL (8.5-10.1) Estimat Glomerular Filtration Rate 86 ML/MIN (>89) Imaging Last Impressions Carotid Artery Ultrasound 10/11/17 0000 Signed Impressions: Service Date/Time: Wednesday, October 11, 2017 22:51 - CONCLUSION: 1. No evidence of hemodynamically significant lesion. Niles Cannon MD Head CT 10/10/17 1309 Signed Impressions: Service Date/Time: Tuesday, October 10, 2017 13:24 - CONCLUSION: Heterogeneous low-density process in the left frontal brain with moderate mass effect. Neoplastic and infectious processes would be the primary considerations with the latter felt less likely. Correlation recommended. 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 There is a large component of tumor involving the leptomeninges and with scattered foci of skull invasion.. Alexander Gilbert MD PE at Discharge GENERAL: Well-developed, obese in no distress HEAD: Atraumatic. Normocephalic. No temporal or scalp tenderness. CARDIOVASCULAR: Regular rate and rhythm without murmurs, gallops, or rubs. RESPIRATORY: Clear to auscultation. Breath sounds equal bilaterally. No wheezes , rales, or rhonchi. GASTROINTESTINAL: Abdomen soft, non-tender, nondistended. No guarding. MUSCULOSKELETAL: Erythema of both lower extremity per patient chronic, some varicosities NEUROLOGICAL: Awake and alert. Cranial nerves II through XII intact. Motor and sensory grossly within normal limits. Five out of 5 muscle strength in all muscle groups. Normal speech. 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 MRI of the brain without acute CVA. Negative carotid sonogram. Monitor on telemetry. A1c 5.5. LDL 121. Agrees to be on Lipitor. Patient wants to leave the hospital today as she has an appointment with her oncologist. She is aware her echocardiogram results are pending and could be abnormal Continue dexamethasone 4 mg every 6.- Patient was on 2 mg twice a day of Dexamethasone as outpatient Discontinue Keppra 500 mg IV every 12 Neurosurgery consulted speech therapy consult. PT also History of hypertension History atrial fibrillation currently in sinus rhythm heart rate in the high 50s to low 60s. Continue on lisinopril 20 mg daily Continue on metoprolol 50 mg twice a day with hold parameters Continue on amiodarone 200 mg daily On further discussion with the patient was not placed on any blood thinners/ antiplatelets due to NURSE PRACTITIONER HOME ASSESSMENTS lesion and history of thrombocytopenia Patient was set up to see an oncologist for evaluation Consult oncologist History of thrombocytopenia. Per family. Her platelet runs low at one point was in the 50s. Aspirin and Coumadin for anticoagulation was not initiated due to this Platelet count now 110. ff CBC Follow CBC history of hypothyroidism. TSH low. Decrease Synthroid to 275 g daily History of depression/impulse control disorder Continue sertraline 200 mg daily. Continue trazodone 100 mg at bedtime History of chronic pain continue on oxycodone 5/325 2 at bedtime when necessary Chronic lower extremity edema with erythema/varicosities on exam. No fever no white count elevation Monitor. Restart Lasix Hypokalemia. Improved with replacement Mild acute kidney insufficiency prerenal. Improving discontinue IV fluids with potassium incorporation Basic metabolic panel in a.m. Urinary tract infection- ff c and S with Escherichia coli Switched to by mouth Ceftin PPI for GI prophylaxis - while on steroids Pt Condition on Discharge: Stable Discharge Disposition: Disch w/ Home Health Serv Discharge Time: > 30 minutes Discharge Instructions DIET: Follow Instructions for: Heart Healthy Diet Speech Therapy-Diet Recommends: Regular Activities you can perform: Regular-No Restrictions Activities to Avoid: Driving Follow up Referrals: Neurosurgery - 1 Week Oncology - 1 Week PCP Follow-up - 1 Week New Medications: Atorvastatin (Atorvastatin) 20 Mg Tab 20 MG PO HS for Cholesterol Management, #30 TAB Cefuroxime (Ceftin) 250 Mg Tab 250 MG PO Q12HR for Infection, #10 TAB Levothyroxine (Synthroid) 75 Mcg Tab 75 MCG PO DAILY@0600 for Thyroid Supplement, #30 TAB Levothyroxine (Synthroid) 200 Mcg Tab 200 MCG PO DAILY@0600 for Thyroid Supplement, #30 TAB Potassium Chloride Microencaps (Potassium Chloride Microencaps) 20 Meq Tab 20 MEQ PO DAILY for Electrolyte Replacement, #30 TAB Changed Medications: Dexamethasone (Dexamethasone) 4 Mg Tab 4 MG PO QID for Control Inflammation, #60 TAB 0 Refills (Changed from: BID) Continued Medications: Albuterol 8.5 GM Inh (Proair Hfa 8.5 GM Inh) 90 Mcg/Act Aer 2 PUFF INH Q4-6H PRN for SHORTNESS OF BREATH, #1 INHALER 0 Refills 108 mcg/actuation Amiodarone (Amiodarone) 200 Mg Tab 200 MG PO DAILY for Regulate Heart Beat, #30 TAB 0 Refills Amlodipine (Amlodipine) 10 Mg Tab 10 MG PO DAILY for Blood Pressure Management, #30 TAB 0 Refills Cetirizine (All Day Allergy) 10 Mg Tab 10 MG PO DAILY for Allergies, TAB 0 Refills Furosemide (Lasix) 80 Mg Tab 80 MG PO BID, #60 TAB 0 Refills Gabapentin (Gabapentin) 400 Mg Cap 400 CAP PO BID, #30 CAP 0 Refills Lisinopril (Lisinopril) 20 Mg Tab 20 MG PO DAILY, #30 TAB 0 Refills Lorazepam (Lorazepam) 0.5 Mg Tab 0.5 MG PO DAILY PRN for ANXIETY, TAB 0 Refills Metoprolol Tartrate (Metoprolol Tartrate) 100 Mg Tab 100 MG PO DAILY, #30 TAB 0 Refills Metoprolol Tartrate (Metoprolol Tartrate) 50 Mg Tab 50 MG PO HS, #30 TAB 0 Refills Omeprazole (Omeprazole) 40 Mg Cap 40 MG PO DAILY, #30 CAP 0 Refills Oxycodone-Acetaminophen (Oxycodone-Acetaminophen) 5-325 mg Tab 1-2 TAB PO Q6H PRN for PAIN, TAB 0 Refills Quetiapine (Quetiapine) 50 Mg Tab 50 MG PO HS, #30 TAB 0 Refills Sertraline (Sertraline) 100 Mg Tab 200 MG PO DAILY, #30 TAB 0 Refills Trazodone (Trazodone) 100 Mg Tablet 100 MG PO HS for Control Depression, #30 TAB 0 Refills Discontinued Medications: Levothyroxine (Levothyroxine) 200 Mcg Tab 200 MCG PO DAILY for Thyroid, #30 TAB 0 Refills Alfa Pierce MD Oct 12, 2017 11:35
--- NOTE | 2017-10-12 16:15 | ECHRPT ---
Indication: CONCLUSIONS Mildly dilated left ventricle. Wall thickness is normal. The left ventricular systolic function is low normal with an estimated ejection fraction in the rang e of 50%. The estimated pulmonary arterial pressure is 37.5 mmHg. BP: 127 / 65 HR: 51 Rhythm: MEASUREMENTS (Male / Female) Normal Values Technical Quality:Good 2D ECHO LV Diastolic Diameter PLAX 5.3 cm 4.2 - 5.9 / 3.9 - 5.3 cm LV Systolic Diameter PLAX 3.9 cm IVS Diastolic Thickness 1.0 cm 0.6 - 1.0 / 0.6 - 0.9 cm LVPW Diastolic Thickness 0.8 cm 0.6 - 1.0 / 0.6 - 0.9 cm LV Relative Wall Thickness 0.3 RV Internal Dim ED PLAX 2.1 cm LA Systolic Diameter LX 3.5 cm 3.0 - 4.0 / 2.7 - 3.8 cm DOPPLER AV Peak Velocity 210.0 cm/s AV Peak Gradient 17.6 mmHg LVOT Peak Velocity 141.0 cm/s LVOT Peak Gradient 8.0 mmHg Mitral E Point Velocity 83.3 cm/s Mitral A Point Velocity 81.4 cm/s Mitral E to A Ratio 1.0 TR Peak Velocity 262.0 cm/s TR Peak Gradient 27.5 mmHg Right Atrial Pressure 10.0 mmHg Pulmonary Artery Systolic Pressu 37.5 mmHg Right Ventricular Systolic Press 37.5 mmHg FINDINGS LEFT VENTRICLE Mildly dilated left ventricle. Wall thickness is normal. The left ventricular systolic function is low normal with an estimated ejection fraction in the rang e of 50%. RIGHT VENTRICLE Normal right ventricular size and systolic function. LEFT ATRIUM The left atrial size is normal. RIGHT ATRIUM The right atrial size is normal. ATRIAL SEPTUM Normal atrial septal thickness without atrial level shunting by limited color doppler interrogation. AORTA The aortic root and proximal ascending aorta are normal in size on limited imaging. MITRAL VALVE Structurally normal mitral valve. No mitral valve stenosis or regurgitation. AORTIC VALVE Trileaflet aortic valve. No aortic valve stenosis or regurgitation. TRICUSPID VALVE The estimated pulmonary arterial pressure is 37.5 mmHg. PULMONARY VALVE No pulmonary valve regurgitation or stenosis. VESSELS The inferior vena cava is normal in size. PERICARDIUM No pericardial effusion. Magno Gilmore MD (Electronically Signed) Final Date:12 October 2017 16:14
[2017-10-12] MEDS ORDERED: ATORVASTATIN 20 MG TAB PO SCH (21:00)
== END 2017-10-12 12:34 | disposition home health service (06) | DRG 54 ==
LOC: NEPC 10:57 → NEDA 15:40 → N05B 18:35
PROVIDERS: ADMIT Internal Medicine; ATTEND Internal Medicine
DX: C71.9 Malignant neoplasm of brain, unspecified (principal); G93.6 Cerebral edema; G93.40 Encephalopathy, unspecified; D69.6 Thrombocytopenia, unspecified; I48.91 Unspecified atrial fibrillation; R47.01 Aphasia; Z68.43 Body mass index [BMI] 50.0-59.9, adult; I10 Essential (primary) hypertension; N39.0 Urinary tract infection, site not specified; E03.9 Hypothyroidism, unspecified; E87.6 Hypokalemia; N28.9 Disorder of kidney and ureter, unspecified; E66.9 Obesity, unspecified; R60.0 Localized edema; T50.1X5A Adverse effect of loop [high-ceiling] diuretics, initial encounter; I83.93 Asymptomatic varicose veins of bilateral lower extremities; B96.20 Unspecified Escherichia coli [E. coli] as the cause of diseases classified elsewhere; F32.9 Major depressive disorder, single episode, unspecified; F63.9 Impulse disorder, unspecified
CPT/HCPCS: 70450; 70553; 80048; 80053; 80061; 80307; 81001; 83036; 83735; 84439; 84443; 84481; 85025; 85027; 85610; 85730; 87077; 87086; 87186; 93005; 93306; 93880; 95819; A9579; J0696; J1100; J1953; J3480

== ENCOUNTER 2017-10-16 14:02 | Emergency (ER) | payer MEDICARE ==
[~2017-10-16] VITALS: Ht 162.6 cm; Wt 144.0 kg
[~2017-10-16 14:02] MED LIST: ALBUAER3 INH; AMIO200T PO; AMLO10TA2 PO; ATOR20TA15 PO; CEFU1TAB18 PO; CETI10TA71 PO; DEXA4TAB PO; FURO1TAB61 PO; GABA400C5 PO; LEVO.075 PO; LEVO.2 PO; LISI-515 PO; LORA0.5T PO; METO100T PO; METO50TA PO; OMEP40CA2 PO; OXYC1TAB63 PO; POTA20TA5 PO; QUET5TAB PO; SERT-129 PO; TRAZ100T10 PO
[2017-10-16 14:13] VITALS: BP 148/75; PULSE 62; RESP 20; TEMP 98.3; O2SAT 97
[2017-10-16 14:17] VITALS: BP 148/75; PULSE 64; RESP 18; TEMP 98.1; O2SAT 97
--- NOTE | 2017-10-16 14:38 | PD ---
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 Patient was admitted to the hospital and discharged on October 12 with altered mental status. At that time she was treated with steroids for cerebral edema. She evidently has been able to ambulate with a walker until today when she was unable to get herself from seated to standing and she had a fall at home. She did not hit her head or sustain any injuries but her family became concerned because she is so weak. Patient reports that all of her body feels weak, constant, severe associated with shakiness. Patient provides limited history secondary to confusion. I spoke to her son on the phone who provided the rest of the history. They are interested in rehabilitation placement [facility] Past Medical History Cancer: Yes (BRAIN CA) Diminished Hearing: No Hypertension: Yes Thyroid Disease: Yes ?: Not Past Surgical History Cholecystectomy: Yes Other Surgery: Yes (BRAIN SX) Social History Alcohol Use: No Tobacco Use: No Substance Use: No Allergies-Medications (Allergen,Severity, Reaction): Coded Allergies: lidocaine (Verified Allergy, Unknown, 10/16/17) Reported Meds & Prescriptions Reported Meds & Active Scripts Active Synthroid (Levothyroxine Sodium) 200 Mcg Tab 200 Mcg PO DAILY@0600 Synthroid (Levothyroxine Sodium) 75 Mcg Tab 75 Mcg PO DAILY@0600 Atorvastatin (Atorvastatin Calcium) 20 Mg Tab 20 Mg PO HS Ceftin (Cefuroxime Axetil) 250 Mg Tab 250 Mg PO Q12HR Dexamethasone 4 Mg Tab 4 Mg PO QID Potassium Chloride Microencaps 20 Meq Tab 20 Meq PO DAILY Reported Sertraline (Sertraline HCl) 100 Mg Tab 200 Mg PO DAILY Gabapentin 400 Mg Cap 400 Cap PO BID Lisinopril 20 Mg Tab 20 Mg PO DAILY Trazodone (Trazodone HCl) 100 Mg Tablet 100 Mg PO HS Amlodipine (Amlodipine Besylate) 10 Mg Tab 10 Mg PO DAILY Metoprolol Tartrate 50 Mg Tab 50 Mg PO HS Metoprolol Tartrate 100 Mg Tab 100 Mg PO DAILY Amiodarone (Amiodarone HCl) 200 Mg Tab 200 Mg PO DAILY Proair Hfa 8.5 GM Inh (Albuterol Sulfate) 90 Mcg/Act Aer 2 Puff INH Q4-6H PRN 108 mcg/actuation Quetiapine (Quetiapine Fumarate) 50 Mg Tab 50 Mg PO HS All Day Allergy (Cetirizine HCl) 10 Mg Tab 10 Mg PO DAILY Lorazepam 0.5 Mg Tab 0.5 Mg PO DAILY PRN Oxycodone-Acetaminophen 5-325 mg Tab 1-2 Tab PO Q6H PRN Omeprazole 40 Mg Cap 40 Mg PO DAILY Lasix (Furosemide) 80 Mg Tab 80 Mg PO BID Review of Systems Except as stated in HPI: all other systems reviewed are Neg Physical Exam Narrative GENERAL: No acute distress, diffuse edema involving the face and lower extremities SKIN: Abrasion on the right distal lower extremity. HEAD: Atraumatic. Normocephalic. EYES: Pupils equal and round. No injection or drainage. ENT: Moist mucous membranes NECK: Trachea midline. CARDIOVASCULAR: Regular rate and rhythm. No murmur appreciated. RESPIRATORY: Clear to auscultation. Breath sounds equal bilaterally. GASTROINTESTINAL: Abdomen soft, non-tender, nondistended. MUSCULOSKELETAL: No obvious deformities. NEUROLOGICAL: Confused but awake and alert. No obvious cranial nerve deficits. 4+ out of 5 strength in the bilateral lower extremities. PSYCHIATRIC: Appropriate mood and affect; insight and judgment normal. Data Data Last Documented VS Vital Signs Date Time Temp Pulse Resp B/P (MAP) Pulse Ox O2 Delivery O2 Flow Rate FiO2 10/16/17 14:17 98.1 64 18 148/75 (99) 97 Room Air Orders Orders Complete Blood Count With Diff (10/16/17 14:30) Comprehensive Metabolic Panel (10/16/17 14:30) ^ Insert Iv (10/16/17 14:30) Consult Pt Eval & Treat (10/16/17 15:25) Labs Laboratory Tests Test 10/16/17 15:00 White Blood Count 15.1 TH/MM3 Red Blood Count 4.33 MIL/MM3 Hemoglobin 14.6 GM/DL Hematocrit 42.5 % Mean Corpuscular Volume 98.3 FL Mean Corpuscular Hemoglobin 33.7 PG Mean Corpuscular Hemoglobin Concent 34.3 % Red Cell Distribution Width 15.4 % Platelet Count 111 TH/MM3 Mean Platelet Volume 9.0 FL Neutrophils (%) (Auto) 88.6 % Lymphocytes (%) (Auto) 5.7 % Monocytes (%) (Auto) 5.6 % Eosinophils (%) (Auto) 0.0 % Basophils (%) (Auto) 0.1 % Neutrophils # (Auto) 13.4 TH/MM3 Lymphocytes # (Auto) 0.9 TH/MM3 Monocytes # (Auto) 0.8 TH/MM3 Eosinophils # (Auto) 0.0 TH/MM3 Basophils # (Auto) 0.0 TH/MM3 CBC Comment DIFF FINAL Differential Comment Blood Urea Nitrogen 30 MG/DL Creatinine 1.11 MG/DL Random Glucose 122 MG/DL Total Protein 6.9 GM/DL Albumin 3.4 GM/DL Calcium Level 8.9 MG/DL Alkaline Phosphatase 47 U/L Aspartate Amino Transf (AST/SGOT) 43 U/L Alanine Aminotransferase (ALT/SGPT) 55 U/L Total Bilirubin 0.6 MG/DL Sodium Level 140 MEQ/L Potassium Level 4.3 MEQ/L Chloride Level 101 MEQ/L Carbon Dioxide Level 34.3 MEQ/L Anion Gap 5 MEQ/L Estimat Glomerular Filtration Rate 49 ML/MIN MDM Medical Decision Making Medical Screen Exam Complete: Yes Emergency Medical Condition: Yes Interpretation(s) Afebrile, no tachycardia, normotensive Leukocytosis Mild renal insufficiency Differential Diagnosis Dehydration, electrolyte imbalance, cerebral edema, brain tumor Narrative Course This is a 62-year-old female who 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 She's been having trouble ambulating. I think this is all related to her brain tumor. Patient would benefit from being in a safer environment and would likely benefit from physical therapy in rehabilitation. I spoke to case management given the patient's recent admission she'll be admitted directly to [facility] rehabilitation. Diagnosis Primary Impression: Brain tumor Patient Instructions: General Instructions Med/Other Pt SpecificInfo: No Change to Meds Disposition: 03 DISCHARGE TO SNF Condition: Stable Key Lund MD Oct 16, 2017 14:38
[2017-10-16 15:48] LABS: AUTOMATED NEUTROPHIL # 13.4 TH/MM3 (1.8-7.7); BASOPHIL % 0.1 % (0.0-2.0); HEMATOCRIT 42.5 % (35.0-46.0); HEMOGLOBIN 14.6 GM/DL (11.6-15.3); LYMPH % 5.7 % (9.0-44.0); LYMPHOCYTE # 0.9 TH/MM3 (1.0-4.8); MEAN CELL VOLUME 98.3 FL (80.0-100.0); MEAN CORPUSCULAR HEMOGLOBIN 33.7 PG (27.0-34.0); MEAN CORPUSCULAR HGB CONC 34.3 % (32.0-36.0); MONO % 5.6 % (0.0-8.0); MONOCYTE # 0.8 TH/MM3 (0-0.9); NEUT % 88.6 % (16.0-70.0); PLATELET COUNT 111 TH/MM3 (150-450); RED BLOOD COUNT 4.33 MIL/MM3 (4.00-5.30); RED CELL DISTRIBUTION WIDTH 15.4 % (11.6-17.2); WHITE BLOOD COUNT 15.1 TH/MM3 (4.0-11.0)
[2017-10-16 16:17] LABS: ALT (GPT) 55 U/L (10-53)
[2017-10-16 16:19] LABS: ALBUMIN 3.4 GM/DL (3.4-5.0); ALKALINE PHOSPHATASE 47 U/L (45-117); AST (GOT) 43 U/L (15-37); BICARBONATE 34.3 MEQ/L (21.0-32.0); BLOOD UREA NITROGEN 30 MG/DL (7-18); CALCIUM 8.9 MG/DL (8.5-10.1); CHLORIDE 101 MEQ/L (98-107); CREATININE 1.11 MG/DL (0.50-1.00); GLOMERULAR FILTRATION RATE 49 ML/MIN (>89); GLUCOSE,RANDOM 122 MG/DL (74-106); SODIUM (NA) 140 MEQ/L (136-145); TOTAL BILIRUBIN ADULT 0.6 MG/DL (0.2-1.0); TOTAL PROTEIN 6.9 GM/DL (6.4-8.2)
[2017-10-16] MEDS ORDERED: ACET-822 PO (16:47)
[2017-10-16 18:32] VITALS: BP 137/92; PULSE 58; RESP 16; O2SAT 100
[2017-10-16 20:48] VITALS: BP 149/71; PULSE 78; RESP 18; O2SAT 97
[2017-10-16] MEDS ORDERED: ACETAMINOPHEN 325 MG TAB PO ONE (23:30)
[2017-10-17 03:12] VITALS: BP 141/64; PULSE 52; RESP 20; O2SAT 97
[2017-10-17 06:42] VITALS: BP 128/58; PULSE 53; RESP 20; O2SAT 97
[2017-10-17] MEDS ORDERED: FUROSEMIDE 80 MG TAB PO ONE (08:30)
[2017-10-17] MEDS ORDERED: GABAPENTIN 400 MG CAP PO ONE (08:30)
[2017-10-17] MEDS ORDERED: LISINOPRIL 20 MG TAB PO ONE (08:30)
[2017-10-17] MEDS ORDERED: POTASSIUM CHLORIDE 20 MEQ CONTROLLED RELEASE TAB PO ONE (08:30)
[2017-10-17] MEDS ORDERED: PANTOPRAZOLE SOD 40 MG DELAYED RELEASE TAB PO ONE (08:30)
[2017-10-17] MEDS ORDERED: AMIODARONE 200 MG TAB PO ONE (08:30)
[2017-10-17] MEDS ORDERED: SERTRALINE HCL 100 MG TAB PO ONE (08:30)
[2017-10-17] MEDS ORDERED: ATORVASTATIN 20 MG TAB PO ONE (08:30)
[2017-10-17] MEDS ORDERED: LEVOTHYROXINE SODIUM 75 MCG TAB PO ONE (08:30)
[2017-10-17] MEDS ORDERED: LEVOTHYROXINE SODIUM 200 MCG TAB PO ONE (08:30)
[2017-10-17] MEDS ORDERED: ALBUTEROL SULFATE 90 MCG/ACT HFA 8 GM INHALER INH PRN (10:45)
[2017-10-17] MEDS ORDERED: CETIRIZINE HCL 10 MG TAB PO SCH (10:45)
[2017-10-17] MEDS ORDERED: POTASSIUM CHLORIDE 20 MEQ CONTROLLED RELEASE TAB PO SCH (10:45)
[2017-10-17] MEDS ORDERED: LEVOTHYROXINE SODIUM 75 MCG TAB PO SCH (10:45)
[2017-10-17] MEDS ORDERED: LEVOTHYROXINE SODIUM 200 MCG TAB PO SCH (10:45)
[2017-10-17] MEDS ORDERED: GABAPENTIN 400 MG CAP PO SCH (10:45)
[2017-10-17] MEDS ORDERED: ACETAMINOPHEN 325 MG TAB PO ONE (10:45)
[2017-10-17] MEDS: DEXAMETHASONE 4 MG TAB PO SCH ×2 (11:35→12:00)
[2017-10-17] MEDS ORDERED: DEXAMETHASONE 4 MG TAB PO SCH (12:00)
[2017-10-17 12:25] VITALS: BP 125/61; PULSE 62; RESP 18; O2SAT 97
[2017-10-17] MEDS ORDERED: FUROSEMIDE 80 MG TAB PO SCH (18:00)
[2017-10-17] MEDS ORDERED: ATORVASTATIN 20 MG TAB PO SCH (21:00)
[2017-10-17] MEDS ORDERED: traZODone HCL 100 MG TAB PO SCH (21:00)
== END 2017-10-17 14:20 ==
LOC: NEPD 14:02 → NEDAMB 10-17 14:20
DX: D49.6 Neoplasm of unspecified behavior of brain (principal); R53.1 Weakness; R41.0 Disorientation, unspecified; I10 Essential (primary) hypertension; E07.9 Disorder of thyroid, unspecified
CPT/HCPCS: 80053; 85025; 97162; 99285; G8987; G8988; J8540